=== PATIENT | female | born 1935 | race American Indian/Alaskan Native ===

== ENCOUNTER 2016-12-23 07:01 | Day surgery (SDC) | payer MEDICARE, MEDICAID ==
[2016-12-16 14:42] VITALS: BMI 34.3
[2016-12-23 08:14] LABS: BASO # 0.1 K/uL (0.0-0.2); EOS # 0.1 K/uL (0.0-0.7); EOS % 0.9 % (0.0-4.0); HEMATOCRIT 39.4 % (34.0-47.0); LYMPH # 2.2 K/uL (1.0-4.3); MEAN CELL VOLUME 84.3 fL (81.0-99.0); MEAN CORPUSCULAR HEMOGLOBIN 26.4 pg (27.0-31.0); MEAN CORPUSCULAR HGB CONC 31.4 g/dL (33.0-37.0); MEAN PLATELET VOLUME 10.7 fL (7.2-11.7); MONO # 0.5 K/uL (0.0-0.8); MONO % 7.8 % (0.0-10.0); NRBC % 0.1 % (0.0-2.0); RED CELL DISTRIBUTION WIDTH 13.8 % (11.5-14.5); WHITE BLOOD COUNT 6.9 K/uL (4.8-10.8)
[2016-12-23 08:23] LABS: CHLORIDE 104 mmol/L (98-107); SODIUM 145 mmol/L (132-148)
[2016-12-23 08:26] LABS: BLOOD UREA NITROGEN 11 mg/dL (7-17); CARBON DIOXIDE 28 mmol/L (22-30); GFR AFRICAN-AMERICAN > 60; GLUCOSE,RANDOM 119 mg/dL (65-105)
[2016-12-23] MEDS ORDERED: Iodixanol 320 MG/ML 200 ML BOTTLE IV ONE (09:50)
[2016-12-23] MEDS ORDERED: Midazolam 2 MG/2 ML VIAL ONE ×3 (11:18→12:16)
[2016-12-23] MEDS ORDERED: Iodixanol 320 MG/ML 100 ML BOTTLE IV ONE (11:32)
[2016-12-23] MEDS ORDERED: Sodium Chloride 0.45% 1,000 ML IV SCH (13:15)
[2016-12-23 16:10] VITALS: RESP 18; TEMP 97; O2SAT 96
[2016-12-23 16:19] VITALS: BP 132/72; PULSE 48
--- NOTE | 2016-12-23 16:54 | OP ---
PROCEDURE DATE: 12/23/2016 PERFORMING PHYSICIAN: Zandra Garcia MD REFERRING PHYSICIAN: Erica Chan DPM PROCEDURE PERFORMED: Retrograde access left common femoral artery, selective catheter placement in t he right peroneal artery via contralateral approach, abdominal aortography, bilateral iliofemoral run off, bilateral lower extremity angiography, use of the Ocelot lumivascular chronic total occlusion cr ossing device. HISTORY: As follows: The patient is an 81-year-old female with hypertension who was peripheral vasc ular disease. The patient developed claudication of the right lower extremity. Ankle brachial index is 0.64. The patient is referred for angiography. DESCRIPTION OF PROCEDURE: As follows: After obtaining informed consent, the patient was prepped and draped in the usual sterile fashion. The left groin was anesthetized with 2% lidocaine solution. A 5-[place]i sheath was inserted into the left common femoral artery. Abdominal aortography and bilater al iliofemoral runoff was performed. Selective catheter placement was performed with exchange of she ath and placement into the right superficial femoral artery via contralateral approach. Further proc edure data is described separately below. FINDINGS: Infrarenal abdominal aorta is free of aneurysm or dissection. Bilateral renal arteries ar ise normally. There is no significant iliac or in-flow stenoses. 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 The tibioperoneal trunk has reconstitution. There is als o reconstitution of the anterior tibial artery. There is 3-vessel runoff to the right foot. The patient was anticoagulated with heparin to achieve therapeutic activated clotting time. The [employer] Ocelot device was loaded onto an Emergency [employer] ES guidewire. The guidewire was advanced to the proximal cap. The Ocelot device was directed to the level of the proximal cap. Lumivascular technol ogy was instituted. There was appearance of intravascular passage. There were fibrotic lesions note d within the lumivascular imaging. Although the lumivascular would not cross due to the very small c aliber of the tibial and peroneal vessels, improvement in the antegrade flow was noted. Decision was made to terminate our procedure at that time. CONCLUSIONS: Improvement in antegrade flow within the subtotally occluded right tibioperoneal trunk. Preserved runoff to the right foot. PLAN: I would recommend antiplatelet therapy with aspirin and Plavix. If further symptoms, would co nsider addition of Pletal. The patient will be discharged the same hospital day. Zandra Garcia MD cc: [id number] TT: 12/23/2016 16:53:03 sn
== END 2016-12-23 15:55 | disposition home or self-care (01) ==
LOC: C.CATHLAB 07:01
PROVIDERS: ATTEND Internal Medicine Cardiovascular Disease
DX: I77.9 Disorder of arteries and arterioles, unspecified (principal); I73.9 Peripheral vascular disease, unspecified; I70.213 Atherosclerosis of native arteries of extremities with intermittent claudication, bilateral legs
CPT/HCPCS: 36247; 36415; 75625; 75716; 75774; 80048; 82948; 85025; 85347; 85610; 85730; C1760; C1766; C1769; C1887; J0360; J1644; J2250; J3010; J7030; Q9966; Q9967